=== PATIENT | female | born 1985 | race African-American/Black ===

== ENCOUNTER 2017-01-22 07:46 | Emergency (ER) | payer MEDICAID ==
--- NOTE | 2017-01-23 10:00 | ER ---
ADMIT: 01/22/2017 RM/LOC: ER [facility] MR#: [id number] [facility] [address] [place], [place] [id number] RAH JASMYN [address] [facility] [address] [place] [address] Emergency Room Report SEX: F AGE: 31 : 1985 DATE: 01/22/2017 ADDENDUM: A 31-year-old [place] female coming in with sore throat for 7 days, swollen tender glands, and put her on Amoxil 500 t.i.d. x7 days. Follow up as needed. Chloraseptic for pain. Alfred Diallo MD/ alec JOB #: [id number] CC: Alfred Diallo MD, Attending Physician Hayden Diamond MD, Family Physician
== END 2017-01-22 09:30 | disposition home or self-care (01) ==
LOC: ER 07:46
DX: J02.9 Acute pharyngitis, unspecified (principal); R13.10 Dysphagia, unspecified